=== PATIENT | female | born 1955 | race Caucasian/White ===

== ENCOUNTER 2020-01-08 12:44 | Outpatient (CLI) | payer OTHER, SELFPAY ==
--- NOTE | ~2020-01-08 | XR_ITS ---
EXAMINATION: XR knee LT 3V DATE: 01/08/2020 13:28 INDICATION: Left knee pain post fall TECHNIQUE: Anteroposterior, sunrise and crosstable lateral views of the left knee were obtained COMPARISON: None. FINDINGS: Alignment is normal. No fracture. No joint effusion/layering lipohemarthrosis. At least mild joint s pace narrowing in the medial compartment which could be underestimated on nonweightbearing imaging. T iny marginal osteophytes in the patellofemoral compartment. Soft tissues are unremarkable. IMPRESSION: 1. At least mild osteoarthritis in the medial and patellofemoral compartments. No left knee joint eff usion or acute osseous abnormality. Reviewed, dictated and finalized at location A. IMPRESSION: 1. At least mild osteoarthritis in the medial and patellofemoral compartments. No left knee joint effusion or acute osseous abnormality.
--- NOTE | ~2020-01-08 | XR_ITS ---
EXAMINATION: XR wrist RT min 3V DATE: 01/08/2020 13:28 INDICATION: Right wrist pain TECHNIQUE: Posteroanterior, ulnar deviation, oblique, and lateral views of the right wrist were obtai meghan. COMPARISON: none FINDINGS: Alignment is normal. No fracture. Couple sclerotic bone islands in the scaphoid. Mild osteoarthritis at the first interphalangeal joint. Remaining joint spaces are relatively preserved. IMPRESSION: 1. Mild osteoarthritis at the right first interphalangeal joint. Otherwise unremarkable right wrist r adiographs. Reviewed, dictated and finalized at location A. IMPRESSION: 1. Mild osteoarthritis at the right first interphalangeal joint. Otherwise unre markable right wrist radiographs.
--- NOTE | ~2020-01-08 | XR_ITS ---
EXAMINATION: XR foot LT min 3V DATE: 01/08/2020 13:28 INDICATION: Cellulitis of the left toe TECHNIQUE: Dorsoplantar, two oblique and lateral views of the left foot were obtained. COMPARISON: None. FINDINGS: Some periosteal reaction at the margins of an increased sclerosis along nondisplaced fracture at the base of the left fifth proximal phalanx. On one of the oblique views there is suggestion of possible extension to the proximal articular surface. Alignment remains essentially anatomic. No other fractur es identified. Subarticular sclerosis and slight flattening of the contour of the head of the second metatarsal consistent with osteonecrosis (Freiberg's infraction). Minimal to mild polyarticular osteo arthritis throughout the left foot. IMPRESSION: 1. Healing nondisplaced potentially intra-articular fracture at the base of the left fifth proximal p halanx. 2. 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 Reviewed, dictated and finalized at location A. IMPRESSION: 1. Healing nondisplaced potentially intra-articular fracture at the base of the left fifth proximal phalanx. 2. Osteonecrosis/Freiberg's infraction at the head of the left second metatarsa l.
== END 2020-01-08 12:45 | disposition home or self-care (01) ==
PROVIDERS: PCP Family Medicine; Visit Provider Family Medicine
DX: L03.032 Cellulitis of left toe (principal); M19.031 Primary osteoarthritis, right wrist; M17.12 Unilateral primary osteoarthritis, left knee; S92.515A Nondisplaced fracture of proximal phalanx of left lesser toe(s), initial encounter for closed fracture; X58.XXXA Exposure to other specified factors, initial encounter
CPT/HCPCS: 73110; 73562; 73630

== ENCOUNTER 2020-05-28 08:36 | Outpatient (NON) | payer OTHER, SELFPAY ==
[2020-05-28 18:17] LABS: SARS-CoV-2 RNA PCR Negative
== END 2020-05-28 08:37 ==
PROVIDERS: PCP Family Medicine; Visit Provider Family Medicine
DX: Z20.822 Contact with and (suspected) exposure to COVID-19 (principal); R51.9 Headache, unspecified
CPT/HCPCS: C9803; U0003; U0005

== ENCOUNTER 2020-07-06 10:44 | Emergency (ER) | payer OTHER, SELFPAY ==
[2020-07-06] VITALS (18 sets, daily range): BP systolic 104–147; BP diastolic 69–102; PULSE 64–80; RESP 14–21; TEMP 36.3; O2SAT 94–99
--- NOTE | ~2020-07-06 | XR_ITS ---
EXAMINATION: XR chest 2V DATE: 07/06/2020 11:29 INDICATION: Chest pain and shortness of breath TECHNIQUE: PA and lateral views of the chest are obtained. COMPARISON: 11/15/2017 FINDINGS: The lungs are free of acute opacities. There is no pleural effusion or pneumothorax. The ca rdiomediastinal silhouette is normal. There is moderate thoracic spondylosis. There are partially antwon ged changes of lumbar fusion. The gallbladder is surgically absent. Surgical clips in the right upper quadrant are likely from prior cholecystectomy. IMPRESSION: 1. No acute cardiopulmonary abnormality. Reviewed, dictated and finalized at location A. 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
--- NOTE | ~2020-07-06 | CT_ITS ---
EXAMINATION: CTA chest PE protocol DATE: 07/06/2020 12:53 INDICATION: Shortness of breath TECHNIQUE: Computed tomography angiography (CTA) of the chest was performed with 100 mL Omnipaque-350 intravenous contrast timed to evaluate the pulmonary arteries. Coronal maximum intensity projection 3D-reconstructions were created by the technologist. The dose-length product (DLP) was 696.99 mGy-cm. Automated exposure control and iterative reconstruction technique were employed. COMPARISON: 11/15/2017 FINDINGS: The pulmonary arteries are well-opacified. No pulmonary embolism is identified. There is mi ld dependent atelectasis. No pathologically enlarged thoracic lymph nodes are identified. The heart s ize is normal. The gallbladder is surgically absent. A stable enhancing mass of the spleen is most co nsistent with a benign finding given the lack of interval change since the 2018 comparison. IMPRESSION: 1. No pulmonary embolism or acute cardiopulmonary abnormality. Reviewed, dictated and finalized at location A. PROFESSOR
--- NOTE | 2020-07-06 11:08 | ECG_ITS ---
Measurements Intervals [place] Rate: 81 P: 40 FL: 160 QRS: 23 QRSD: 92 T: 66 QT: 362 QTc: 422 Interpretive Statements SINUS RHYTHM BORDERLINE ST-T WAVE ABNORMALITY- HIGH LATERAL LEADS BORDERLINE ECG Electronically Signed On 07-06-2020 15:22:40 ENGINEER/CONDUCTOR by Baldo Mcdowell D.O.
--- NOTE | 2020-07-06 11:21 | ED.GENADULT ---
HPI - General Adult General Chief complaint: Unspecified Stated complaint: chest pain with sob Time Seen by Provider: 07/06/20 11:08 Source: patient Mode of arrival: ambulatory Limitations: no limitations History of Present Illness HPI narrative: This is a 65-year-old female that presents the emergency department for intermittent chest pain over the last week. Reports the pain is substernal and is sharp in nature. It lasts only briefly. No known alleviating or exacerbating factors. She also reports some shortness of breath. She has history of PE and was concerned she had another one. She does take rivaroxaban, and reports she has been taking this as prescribed. Reports over the last couple of days she also noted some shooting pains from the left side of her back going into her chest. She then noted yesterday that she was starting to get a painful rash in the area. Denies fever cough. Related Data Allergies Allergy/AdvReac Type Severity Reaction Status Date / Time apixaban Allergy Mild Itching Verified 07/06/20 11:04 WITH RASH amoxicillin Allergy Unknown Difficulty Verified 07/06/20 11:04 Breathing codeine Allergy Unknown Difficulty Verified 07/06/20 11:04 Breathing clavulanic acid Allergy Difficulty Verified 07/06/20 11:04 [From Augmentin] Breathing AMOXICILLIN TRIHYDRATE Allergy Unknown Other Uncoded 07/06/20 11:04 Review of Systems Review of Systems: Narrative: CONSTITUTIONAL: Denies fever CARDIOVASCULAR: Reports chest pain RESPIRATORY: Reports dyspnea. Denies cough SKIN: Reports rash MUSCULOSKELETAL: Reports back pain All systems reviewed & are unremarkable except as noted in HPI and below PMFSH Past Medical History Medical History (Updated 07/06/20 @ 16:10 by Tiffanie Talbot PA-C) Acute non-recurrent maxillary sinusitis Acute pain of left knee Acute pain of right wrist Cataract Cellulitis of great toe, left Encounter for blood typing Fibromyalgia Headache Restless legs syndrome UTI (urinary tract infection) Family History Family History (Updated 08/17/18 @ 08:58 by DOCTOR UNKNOWN) Mother Acute myocardial infarction Cerebrovascular accident Carcinoma of colon Family history of lung cancer Family history of malignant neoplasm of breast in first degree relative Grandparent Acute myocardial infarction Family history of malignant neoplasm of breast in first degree relative Sibling Cerebrovascular accident Father Family history of chronic obstructive pulmonary disease Social History Social History Smoking status: Never smoker Alcohol intake: never Gender identity (if verbalized by the patient): Female Exam Narrative: Exam Narrative: GENERAL: Well-appearing, well-nourished, and in no acute distress. HEAD: Normocephalic, atraumatic. EYES: EOMI. ENT: Mucous membranes moist. Oropharynx without tonsillar hypertrophy exudate or other lesions. NECK: Supple. No adenopathy or masses. No carotid bruits or JVD CHEST: Clear to auscultation. No respiratory distress. No wheezes rales or rhonchi HEART: Regular rate and rhythm. No murmur heard. Normal peripheral pulses. EXTREMITIES: Normal range of motion. No edema. SKIN: Warm, dry. Red, papular rash present in groups over the left lateral chest NEURO: No focal deficits. Alert and oriented x3. PSYCH: Normal mood and affect Course Vital Signs Vital signs: Vital Signs Temperature 97.4 F L 07/06/20 10:51 Pulse Rate 80 07/06/20 10:51 Respiratory Rate 20 07/06/20 10:51 Blood Pressure 118/91 H 07/06/20 10:51 Pulse Oximetry 95 07/06/20 10:51 Temperature 97.4 F L 07/06/20 10:51 Pulse Rate 69 07/06/20 15:09 Respiratory Rate 19 07/06/20 15:09 Blood Pressure 144/102 H 07/06/20 15:09 Pulse Oximetry 99 07/06/20 15:09 Medical Decision Making MDM Narrative Medical decision making narrative: Patient presents the emergency department for ches
[2020-07-06] MEDS: ASPIRIN 81 MG CHEWABLE TABLET 324 MG PO (11:25)
[2020-07-06 11:38] LABS: Basophils Percent Auto 0.7 % (0.2-1.2); Eosinophils Absolute Auto 0.2 K/mm3 (0-0.3); Eosinophils Percent Auto 3.6 % (0-4.4); Hematocrit 41.5 % (37.0-47.0); Hemoglobin 13.7 g/dL (12.0-15.0); Immature Granulocyte Absolute 0.02 K/mm3 (0.00-0.031); Immature Granulocyte Percent A 0.3 % (0-0.5); Lymphocytes Absolute Auto 2.49 K/mm3 (0.9-3.2); Lymphocytes Percent Auto 42.1 % (18.3-44.2); Mean Corpuscular Hemoglobin 28.8 pg (26-34); Mean Corpuscular Volume 87.4 fl (80-100); Mean Platelet Volume 10.6 fl (7.4-10.4); Monocytes Absolute Auto 0.4 K/mm3 (0.1-0.6); Monocytes Percent Auto 6.8 % (2.6-8.5); Neutrophils Absolute Auto 2.8 K/mm3 (1.3-6.7); Neutrophils Percent Auto 46.5 % (45.5-73.1); Platelet Count Result 212 k/mm3 (150-375); Red Blood Count 4.75 M/mm3 (4.2-5.4); Red Cell Distribution Width 13.2 % (11.5-14.5); White Blood Count 5.9 K/mm3 (4.5-10.0)
[2020-07-06 11:52] LABS: INR 1.5; Prothrombin Time 18.3 Seconds (11.1-14.7)
[2020-07-06 11:53] LABS: Partial Thromboplastin Time 37.1 SECONDS (22.3-36.8)
[2020-07-06 11:56] LABS: Anion Gap 7 mmol/L (8-16); Blood Urea Nitrogen 16 mg/dL (7-17); Calcium 9.1 mg/dL (8.4-10.2); Carbon Dioxide 30 mmol/L (22-30); Chloride 99 mmol/L (98-107); Estimated CRCL calculation 120 ml/min; Estimated Glomerular Filt Rate > 60; Glucose 347 mg/dL (65-105); Potassium 3.8 mmol/L (3.4-5.0); Sodium 136 mmol/L (137-145)
[2020-07-06 12:08] LABS: NT Pro B Type Natriuretic Pept 39 PG/ML (5-100); Troponin I < 0.012 ng/mL (0.000-0.034)
[2020-07-06 15:37] LABS: Troponin I < 0.012 ng/mL (0.000-0.034)
== END 2020-07-06 16:42 | disposition home or self-care (01) ==
PROVIDERS: Physician Assistant; Emergency Provider Emergency Medicine; PCP Family Medicine
DX: R07.89 Other chest pain (principal); B02.9 Zoster without complications; M79.7 Fibromyalgia; Z87.440 Personal history of urinary (tract) infections; G25.81 Restless legs syndrome; R94.31 Abnormal electrocardiogram [ECG] [EKG]
CPT/HCPCS: 36415; 71046; 71275; 80048; 83880; 84484; 85025; 85610; 85730; 93005; 99284; A9270; Q9967

== ENCOUNTER 2020-07-25 15:14 | Outpatient (CLI) | payer OTHER, SELFPAY | END 2020-07-25 15:15 | disposition home or self-care (01) | LOC: ANHCOVIDVC 15:14 | PROVIDERS: PCP Family Medicine | DX: Z23 Encounter for immunization (principal) | CPT/HCPCS: 0001A; 91300 ==

== ENCOUNTER 2020-08-15 15:13 | Outpatient (CLI) | payer OTHER, SELFPAY | END 2020-08-15 15:14 | disposition home or self-care (01) | LOC: ANHCOVIDVC 15:13 | PROVIDERS: PCP Family Medicine | DX: Z23 Encounter for immunization (principal) | CPT/HCPCS: 0002A; 91300 ==

== ENCOUNTER 2020-08-30 13:31 | Emergency (ER) | payer OTHER, SELFPAY ==
--- NOTE | ~2020-08-30 | CT_ITS ---
EXAMINATION: CT abdomen pelvis w con DATE: 08/30/2020 15:32 INDICATION: Left upper quadrant abdominal pain, nausea. History of colon cancer. TECHNIQUE: Computed tomography (CT) of the abdomen and pelvis was performed with 100 cc Omnipaque 350 intravenous contrast. Automated exposure control and iterative reconstruction technique were employe d. Exam dose: 1088.30 mGy-cm total exam DLP. COMPARISON: 12/2018 right upper quadrant abdominal ultrasound 06/21/2018 CT abdomen pelvis FINDINGS: Stable peripherally enhancing 2.6 cm splenic mass with central hypodensity, unchanged since . Diffuse hepatic steatosis. No hepatic space-occupying mass lesion. Status post cholecystectomy. No bile duct or pancreatic duct dilatation. No pancreatic mass lesion or calcification. Normal morphology of the adrenal glands. Scattered bilateral renal cysts measuring up to 11.5 mm. Nonobstructing 4 mm right renal calculus. No ureteral calculus or hydroureteronephrosis. Normal caliber of the abdominal aorta. No intraperitoneal or retroperitoneal or pelvic mass lesion or adenopathy or ascites. Status post hysterectomy. The urinary bladder is unremarkable. Mild colonic diverticulosis. No CT evidence of diverticulitis. Status post right colectomy. Right wide fat-containing ventral abdominal wall hernia. Small left ventral supraumbilical fat-contai julian abdominal wall hernia. Posterior and interbody L3-5 and anterior L4-5 surgical spinal fusion. Moderately severe degenerative disc disease at L2-3 and L5-S1. IMPRESSION: Stable 2.6 cm splenic mass Diffuse hepatic steatosis Status post cholecystectomy Bilateral renal cysts Nonobstructive 4 mm right renal calculus Status post hysterectomy Mild colonic diverticulosis Status post right colectomy Surgical fusion of the lumbar spine at L3-5 Reviewed, dictated and finalized at Location A. Reviewed, dictated and finalized at location A.
--- NOTE | ~2020-08-30 | XR_ITS ---
XR chest 2V DATE: 08/30/2020 14:12 INDICATION: Left chest pain radiating under left breast and to the back TECHNIQUE: PA and lateral views COMPARISON: 07/06/2020 CT pulmonary scan 07/06/2020 2 view chest FINDINGS: Normal heart size. No hilar or mediastinal enlargement. No pulmonary infiltrate or consolid ation, pleural effusion or pulmonary vascular congestion or pneumothorax. Physical screws and rods are noted in the lumbar area. Status post cholecystectomy. Osteopenia. Mild thoracic and lumbar scoliosis. IMPRESSION: No active cardiopulmonary disease or significant change since 07/06/2020 Reviewed, dictated and finalized at location A. IMPRESSION: No active cardiopulmonary disease or significant change since 2020
[2020-08-30 13:33] VITALS: BP 143/64; PULSE 70; RESP 18; TEMP 36.2; O2SAT 100
--- NOTE | 2020-08-30 13:37 | ECG_ITS ---
Measurements Intervals [place] Rate: 66 P: 37 MD: 141 QRS: 13 QRSD: 82 T: 53 QT: 354 QTc: 373 Interpretive Statements SINUS RHYTHM BASELINE ARTIFACT- I, II NORMAL ECG Electronically Signed On 08-30-2020 17:45:57 CDT by Balod Mcdowell D.O.
[2020-08-30 13:56] LABS: Basophils Percent Auto 0.6 % (0.2-1.2); Eosinophils Absolute Auto 0.1 K/mm3 (0-0.3); Eosinophils Percent Auto 2.1 % (0-4.4); Hematocrit 42.9 % (37.0-47.0); Hemoglobin 14.2 g/dL (12.0-15.0); Immature Granulocyte Absolute 0.02 K/mm3 (0.00-0.031); Immature Granulocyte Percent A 0.3 % (0-0.5); Lymphocytes Absolute Auto 2.48 K/mm3 (0.9-3.2); Lymphocytes Percent Auto 37.2 % (18.3-44.2); Mean Corpuscular HGB Conc 33.1 g/dl (32-36); Mean Corpuscular Hemoglobin 29.3 pg (26-34); Mean Corpuscular Volume 88.5 fl (80-100); Mean Platelet Volume 10.1 fl (7.4-10.4); Monocytes Absolute Auto 0.5 K/mm3 (0.1-0.6); Monocytes Percent Auto 6.9 % (2.6-8.5); Neutrophils Absolute Auto 3.5 K/mm3 (1.3-6.7); Neutrophils Percent Auto 52.9 % (45.5-73.1); Platelet Count Result 237 k/mm3 (150-375); Red Blood Count 4.85 M/mm3 (4.2-5.4); Red Cell Distribution Width 13.2 % (11.5-14.5); White Blood Count 6.7 K/mm3 (4.5-10.0)
[2020-08-30 14:04] LABS: Anion Gap 4 mmol/L (8-16); Blood Urea Nitrogen 17 mg/dL (7-17); Calcium 9.3 mg/dL (8.4-10.2); Carbon Dioxide 34 mmol/L (22-30); Chloride 100 mmol/L (98-107); Estimated CRCL calculation 99 ml/min; Estimated Glomerular Filt Rate > 60; Glucose 187 mg/dL (65-105); Potassium 4.4 mmol/L (3.4-5.0); Sodium 138 mmol/L (137-145)
[2020-08-30 14:09] LABS: INR 1.7; Partial Thromboplastin Time 36.8 SECONDS (22.3-36.8); Prothrombin Time 20.3 Seconds (11.1-14.7)
--- NOTE | 2020-08-30 14:15 | ED.CHESTPAIN ---
HPI - Chest Pain General Chief Complaint: Chest Pain Stated Complaint: pain under left breast radiate to back x 8 days/na Time Seen by Provider: 08/30/20 14:14 History of Present Illness HPI narrative: Patient Related Data Allergies Allergy/AdvReac Type Severity Reaction Status Date / Time apixaban Allergy Mild Itching Verified 07/06/20 11:04 WITH RASH amoxicillin Allergy Unknown Difficulty Verified 07/06/20 11:04 Breathing codeine Allergy Unknown Difficulty Verified 07/06/20 11:04 Breathing clavulanic acid Allergy Difficulty Verified 07/06/20 11:04 [From Augmentin] Breathing AMOXICILLIN TRIHYDRATE Allergy Unknown Other Uncoded 07/06/20 11:04 PMFSH Past Medical History Medical History (Updated 07/07/20 @ 09:49 by Karlo Stanley MD) Acute non-recurrent maxillary sinusitis Acute pain of left knee Acute pain of right wrist Cataract Cellulitis of great toe, left Encounter for blood typing Fibromyalgia Headache HZV (herpes zoster virus) post herpetic neuralgia (07/06/20) Left lateral chest Restless legs syndrome UTI (urinary tract infection) Family History Family History (Updated 08/17/18 @ 08:58 by DOCTOR UNKNOWN) Mother Acute myocardial infarction Cerebrovascular accident Carcinoma of colon Family history of lung cancer Family history of malignant neoplasm of breast in first degree relative Grandparent Acute myocardial infarction Family history of malignant neoplasm of breast in first degree relative Sibling Cerebrovascular accident Father Family history of chronic obstructive pulmonary disease Social History Social History Smoking status: Never smoker Alcohol intake: never Gender identity (if verbalized by the patient): Female Course Vital Signs Vital signs: Vital Signs Temperature 36.2 C L 08/30/20 13:33 Pulse Rate 70 08/30/20 13:33 Respiratory Rate 18 08/30/20 13:33 Blood Pressure 143/64 H 08/30/20 13:33 Pulse Oximetry 100 08/30/20 13:33 Temperature 36.2 C L 08/30/20 13:33 Pulse Rate 70 08/30/20 13:33 Respiratory Rate 18 08/30/20 13:33 Blood Pressure 143/64 H 08/30/20 13:33 Pulse Oximetry 100 08/30/20 13:33 MDM - Chest Pain Lab Data Result diagrams: 08/30/20 13:44 08/30/20 13:44 Labs: Lab Results 08/30/20 08/30/20 08/30/20 Range/Units 13:44 13:44 13:44 WBC 6.7 (4.5-10.0) K/mm3 RBC 4.85 (4.2-5.4) M/mm3 Hgb 14.2 (12.0-15.0) g/dL Hct 42.9 (37.0-47.0) % MCV 88.5 (80-100) fl MCH 29.3 (26-34) pg MCHC 33.1 (32-36) g/dl RDW 13.2 (11.5-14.5) % Plt Count 237 (150-375) k/mm3 MPV 10.1 (7.4-10.4) fl Immature Gran % (Auto) 0.3 (0-0.5) % Neut % (Auto) 52.9 (45.5-73.1) % Lymph % (Auto) 37.2 (18.3-44.2) % [place] % (Auto) 6.9 (2.6-8.5) % Eos % (Auto) 2.1 (0-4.4) % Baso % (Auto) 0.6 (0.2-1.2) % Lymph # (Auto) 2.48 (0.9-3.2) K/mm3 [place] # (Auto) 0.5 (0.1-0.6) K/mm3 Eos # (Auto) 0.1 (0-0.3) K/mm3 Baso # (Auto) 0.0 (0.0-0.1) K/mm3 Abs Immat Gran (auto) 0.02 (0.00-0.031) K/mm3 Absolute Neuts (auto) 3.5 (1.3-6.7) K/mm3 Absolute Nucleated RBC 0.0 (0.0-0.012) K/mm3 Nucleated RBC % 0.0 (0.0-0.2) % PT 20.3 H (11.1-14.7) Seconds INR 1.7 APTT 36.8 (22.3-36.8) SECONDS Sodium 138 (137-145) mmol/L Potassium 4.4 (3.4-5.0) mmol/L Chloride 100 (98-107) mmol/L Carbon Dioxide 34 H (22-30) mmol/L Anion Gap 4 L (8-16) mmol/L BUN 17 (7-17) mg/dL Creatinine 0.50 L (0.7-1.0) mg/dL Estim Creat Clear Calc 99 ml/min Estimated GFR > 60 (59 - ) Glucose 187 H (65-105) mg/dL Calcium 9.3 (8.4-10.2) mg/dL Troponin I Pending Discharge Plan Discharge Prescriptions: No Action clindamycin HCl 300 mg capsule 300 mg PO Q8H Qty: 30 RF: 0 Hold Instructions: Patient no longe
[2020-08-30 14:16] LABS: Troponin I < 0.012 ng/mL (0.000-0.034)
[2020-08-30 14:30] VITALS: PULSE 73
[2020-08-30 14:31] VITALS: BP 163/84; PULSE 74; RESP 17; O2SAT 99
--- NOTE | 2020-08-30 14:33 | ED.CHESTPAIN ---
HPI - Chest Pain General Chief Complaint: Chest Pain Stated Complaint: pain under left breast radiate to back x 8 days/na Time Seen by Provider: 08/30/20 14:14 Source: patient Mode of arrival: ambulatory Limitations: no limitations History of Present Illness HPI narrative: Patient 65 years old white female presented to the ED with intermittent pain at the left lower ribs below left breast. Associated with intermittent nausea and diaphoresis. Patient denies any aggravating or relieving factors, patient reported eating sometimes can make it worse. History of shingles 2 months ago on the same side and site. Patient been complaining of discomfort and intermittent itching for the last 2 months at the same area. History of diabetes, hypertension, right pulmonary embolism 2 years ago, currently on Xarelto and aspirin. Patient does not smoke or drink, uses marijuana every night. Related Data Allergies Allergy/AdvReac Type Severity Reaction Status Date / Time apixaban Allergy Mild Itching Verified 08/30/20 14:35 WITH RASH amoxicillin Allergy Unknown Difficulty Verified 08/30/20 14:35 Breathing codeine Allergy Unknown Difficulty Verified 08/30/20 14:35 Breathing clavulanic acid Allergy Difficulty Verified 08/30/20 14:35 [From Augmentin] Breathing AMOXICILLIN TRIHYDRATE Allergy Unknown Other Uncoded 08/30/20 14:35 Review of Systems Review of Systems: Narrative: CONSTITUTIONAL: Denies fever, chills, or sweats. EYES: Denies visual changes, redness, or discharge. ENT: Denies rhinorrhea, congestion, sore throat, or otalgia. CARDIOVASCULAR: Denies chest pain, palpitations, or edema. RESPIRATORY: Denies cough or dyspnea. GASTROINTESTINAL: Denies abdominal pain, nausea, vomiting, or diarrhea. GENITOURINARY: Denies dysuria or hematuria. SKIN: Denies rash or itching. MUSCULOSKELETAL: Denies back pain, joint pain, or myalgia. NEUROLOGIC: Denies headache, numbness, or weakness. PSYCHIATRIC: Anxiety PMFSH Past Medical History Medical History Acute non-recurrent maxillary sinusitis Acute pain of left knee Acute pain of right wrist Cataract Cellulitis of great toe, left Encounter for blood typing Fibromyalgia Headache HZV (herpes zoster virus) post herpetic neuralgia (07/06/20) Left lateral chest Restless legs syndrome UTI (urinary tract infection) Family History Family History Mother Acute myocardial infarction Cerebrovascular accident Carcinoma of colon Family history of lung cancer Family history of malignant neoplasm of breast in first degree relative Grandparent Acute myocardial infarction Family history of malignant neoplasm of breast in first degree relative Sibling Cerebrovascular accident Father Family history of chronic obstructive pulmonary disease Social History Social History Smoking status: Never smoker Alcohol intake: never Gender identity (if verbalized by the patient): Female Exam Narrative: Exam Narrative: General appearance: Well-developed, well-nourished Skin: Normal color Head: Normocephalic, nontraumatic Eyes: Clear conjunctiva ENT: Oropharynx normal, ears normal, nose normal Neck: Supple, nontender Chest and respiratory: Airway patent, no respiratory distress, no accessory muscle use, moderate tenderness left lower ribs at the mid axillary line, no erythema, no bruises, no swelling.. Old healing rash at that area Heart: Regular rate/rhythm Abdomen: Soft, nontender, no organomegaly, quiet bowel sounds Vascular: Normal peripheral pulses, normal capillary refill. 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
[2020-08-30] MEDS: ASPIRIN 81 MG CHEWABLE TABLET 324 MG PO (14:34)
[2020-08-30 14:58] LABS: Alanine Aminotransferase 21 U/L (4-35); Albumin Level 4.4 g/dL (3.5-5.1); Alkaline Phosphatase 79 U/L (38-126); Aspartate Amino Transferase 27 U/L (14-36); Bilirubin,Total 0.5 mg/dL (0.2-1.3); Lipase 51 U/L (23-300)
[2020-08-30 15:16] VITALS: BP 135/65; PULSE 70; RESP 20; O2SAT 97
[2020-08-30 16:09] VITALS: BP 137/70; PULSE 73; RESP 18; O2SAT 96
[2020-08-30 17:43] VITALS: BP 110/79; PULSE 74; RESP 18; O2SAT 95
== END 2020-08-30 17:44 | disposition home or self-care (01) ==
PROVIDERS: Emergency Provider Emergency Medicine; PCP Family Medicine
DX: D73.9 Disease of spleen, unspecified (principal); R07.9 Chest pain, unspecified; E11.9 Type 2 diabetes mellitus without complications; I10 Essential (primary) hypertension; Z86.711 Personal history of pulmonary embolism; Z79.01 Long term (current) use of anticoagulants; Z79.82 Long term (current) use of aspirin; M79.7 Fibromyalgia; G25.81 Restless legs syndrome; Z87.440 Personal history of urinary (tract) infections; H26.9 Unspecified cataract; Z79.4 Long term (current) use of insulin
CPT/HCPCS: 36415; 71046; 74177; 80048; 80076; 83690; 84484; 85025; 85610; 85730; 93005; 99284; A9270; Q9967

== ENCOUNTER 2020-11-05 13:14 | Outpatient (CLI) | payer OTHER, SELFPAY ==
--- NOTE | ~2020-11-05 | MM_ITS ---
EXAMINATION: MM diagnostic madhuri BI w keisha HISTORY: Diffuse cystic mastopathy TECHNIQUE: ML, MLO and craniocaudal bilateral full field and left spot 3-D tomosynthesis images were performed and synthetic 2-D images were generated. CAD analysis was submitted and interpreted. COMPARISON: None BREAST PARENCHYMAL COMPOSITION: There are scattered areas of fibroglandular density. FINDINGS: Occasional bilateral benign calcifications. No suspicious mass, architectural distortion, m alignant calcification, skin thickening or retraction of either breast is evident. IMPRESSION: 1. No mammographic evidence of malignancy 2. Routine mammographic screening is recommended BI-RADS Category 2: Benign finding(s). Reviewed, dictated and finalized at location A.
== END 2020-11-05 13:15 | disposition home or self-care (01) ==
LOC: ANHIMG 13:15
PROVIDERS: PCP Family Medicine; Visit Provider Family Medicine
DX: N60.19 Diffuse cystic mastopathy of unspecified breast (principal); R92.2 Inconclusive mammogram
CPT/HCPCS: 77062; 77066; G0279

== ENCOUNTER 2021-09-07 13:04 | Outpatient (CLI) | payer OTHER, SELFPAY ==
--- NOTE | ~2021-09-07 | XR_ITS ---
XR hip RT min 3V w AP pelvis DATE: 09/07/2021 13:31 INDICATION: Right hip pain TECHNIQUE: AP pelvis. AP, lateral and crosstable lateral views of right hip COMPARISON: 06/14/2014 MRI pelvis / CT abdomen pelvis FINDINGS: Osteopenia. Normal alignment at the pubic symphysis and sacroiliac joints. Mild osteoarthritic changes of the sac roiliac and hip joints. No pelvic fracture or bone destruction. Pedicle screws and rods and anterior plate and screws are noted in the lower lumbar spine. IMPRESSION: Mild bilateral sacroiliac and hip osteoarthritis Osteopenia Postoperative change of the lumbar spine Reviewed, dictated and finalized at location A.
--- NOTE | ~2021-09-07 | XR_ITS ---
XR lumbar spine min 4V DATE: 09/07/2021 13:32 INDICATION: Low back pain, left sciatica TECHNIQUE: AP, lateral, bilateral oblique views and coned lateral lumbosacral view COMPARISON: None FINDINGS: Posterior spinal fusion at L3-5 bilaterally with pedicle screws and rods. Interbody spinal fusion at L3-4 and L4-5. Anterior plate and screws at L4-5. There is diffuse osteopenia. There is severe degenerative disc disease and mild anterolisthesis at L2-3. Mild degenerative disc disease at L5-S1 The sacroiliac joints are intact. No fracture or bone destruction is evident. Status post cholecystectomy. IMPRESSION: Anterior, interbody and posterior lumbar surgical spinal fusion Mild anterolisthesis and severe degenerative disc disease at L2-3 Mild degenerative disc disease at L5-S1 Reviewed, dictated and finalized at location A.
== END 2021-09-07 13:05 | disposition home or self-care (01) ==
LOC: ANHIMG 13:08
PROVIDERS: PCP Family Medicine; Visit Provider Family Medicine
DX: M25.551 Pain in right hip (principal); G89.29 Other chronic pain; M54.41 Lumbago with sciatica, right side; M54.42 Lumbago with sciatica, left side; Z98.1 Arthrodesis status; M51.37 Other intervertebral disc degeneration, lumbosacral region; M51.36 Other intervertebral disc degeneration, lumbar region; M53.3 Sacrococcygeal disorders, not elsewhere classified; M16.0 Bilateral primary osteoarthritis of hip; M85.88 Other specified disorders of bone density and structure, other site
CPT/HCPCS: 72110; 73502

== ENCOUNTER 2022-01-10 19:06 | Emergency (ER) | payer OTHER, SELFPAY ==
[2022-01-10] VITALS (10 sets, daily range): BP systolic 130–158; BP diastolic 63–80; PULSE 81–92; RESP 13–19; TEMP 36.9; O2SAT 91–98
--- NOTE | ~2022-01-10 | XR_ITS ---
EXAMINATION: XR chest 1V portable Exam Date/Time: 01/10/2022 19:50 CDT HISTORY: SOB, COUGH, N/V, CHEST PAIN X TODAY. Comparison: 08/30/2020. RESULT: Lines, tubes, and devices: None. Lungs and pleura: Clear. Cardiomediastinal silhouette: Stable. Other: No acute osseous or upper abdominal finding. IMPRESSION: No acute cardiopulmonary process. Reviewed, dictated and finalized at location K.
--- NOTE | 2022-01-10 19:14 | ECG_ITS ---
Measurements Intervals [place] Rate: 91 P: 33 MN: 145 QRS: 4 QRSD: 97 T: 44 QT: 354 QTc: 437 Interpretive Statements SINUS RHYTHM NORMAL ELECTROCARDIOGRAM COMPARED TO ECG 08/30/2020 13:43:16 NO SIGNIFICANT CHANGES Electronically Signed On 01-11-2022 16:54:11 CDT by Ismael Ortega M.D.
--- NOTE | 2022-01-10 19:28 | ED.GENADULT ---
HPI - General Adult General Chief complaint: Upper Respiratory Infection Stated complaint: headache Time Seen by Provider: 01/10/22 19:16 History of Present Illness HPI narrative: Patient 66-year-old female who presents the emergency department with chief complaint of sore throat body aches cough pain with breathing and generalized malaise. Patient reports she has history of a pulmonary embolus and is currently on anticoagulants. Patient states this morning she woke up and started having a sore throat she stated was initially can of a tickle like feeling that has progressed to become pretty severe patient reports that she had COVID back in May and had symptoms for about 2 weeks. Patient states that she feels horrible reports that the symptoms or not improved by anything reports she feels extremely nauseated. The patient reports that she has discomfort in her chest that is a sharp type sensation and worse whenever she coughs Related Data Home Medications Medication Instructions Recorded Confirmed omeprazole 20 mg tablet,delayed 20 mg PO BID 07/30/21 01/06/22 release insulin glargine 100 unit/mL 60 unit subcut DAILY 01/06/22 01/06/22 subcutaneous solution (Lantus U-100 Insulin) Allergies Allergy/AdvReac Type Severity Reaction Status Date / Time apixaban Allergy Mild Itching Verified 08/30/20 14:35 WITH RASH amoxicillin Allergy Unknown Difficulty Verified 08/30/20 14:35 Breathing codeine Allergy Unknown Difficulty Verified 08/30/20 14:35 Breathing clavulanic acid Allergy Difficulty Verified 08/30/20 14:35 [From Augmentin] Breathing AMOXICILLIN TRIHYDRATE Allergy Unknown Other Uncoded 08/30/20 14:35 Review of Systems Review of Systems: A 10 system review of systems was completed on the patient and is negative except for what is stated in the HPI. Nursing and ancillary documentation was reviewed. [facility] Past Medical History Medical History Acute bronchitis Acute non-recurrent maxillary sinusitis Acute pain of left knee Acute pain of right wrist BMI 31.0-31.9,adult BMI 33.0-33.9,adult BMI 34.0-34.9,adult Cataract Cellulitis of great toe, left Chronic pain of right hip Mild osteoarthritis of both hips on x-ray of the hips and pelvis on 09/07/2021. COVID-19 (05/17/21) fully vaccinated and tested positive for COVID on 05/22/2021 Encounter for blood typing blood type A positive on 09/11/2020 Fibrocystic breast Fibromyalgia Fuchs' corneal dystrophy of both eyes Headache HZV (herpes zoster virus) post herpetic neuralgia (07/06/20) Left lateral chest Nausea Nonproliferative diabetic retinopathy with macular edema associated with type 2 diabetes mellitus (09/02/21) Obesity (BMI 30.0-34.9) Oral candidiasis Osteopenia determined by x-ray diffuse osteopenia of the lumbar spine on x-ray 09/07/2021. Restless legs syndrome UTI (urinary tract infection) Family History Family History Mother Acute myocardial infarction Cerebrovascular accident Carcinoma of colon Family history of lung cancer Family history of malignant neoplasm of breast in first degree relative Grandparent Acute myocardial infarction Family history of malignant neoplasm of breast in first degree relative Sibling Cerebrovascular accident Father Family history of chronic obstructive pulmonary disease Social History Social History Smoking status: Never smoker Alcohol intake: never Substance use: never Substance use type: does not use Gender identity (if verbalized by the patient): Female Exam Narrative: GENERAL: Well-appearing, well-nourished, and in no acute distress. HEAD: Normocephalic, atraumatic. EYES: PERRLA and EOMI. ENT: Nares clear, no rhinorrhea or epistaxis. Mucous membranes moist. NECK: Supple. KASHIF
[2022-01-10] MEDS: MORPHINE SULFATE (*CRX) 4 MG/ML INJ IV PUSH (20:13)
[2022-01-10 20:14] LABS: Basophils Percent Auto 0.6 % (0.2-1.2); Eosinophils Absolute Auto 0.1 K/mm3 (0-0.3); Eosinophils Percent Auto 1.2 % (0-4.4); Hematocrit 44.4 % (37.0-47.0); Hemoglobin 14.9 g/dL (12.0-15.0); Immature Granulocyte Absolute 0.03 K/mm3 (0.00-0.031); Immature Granulocyte Percent A 0.4 % (0-0.5); Lymphocytes Absolute Auto 1.42 K/mm3 (0.9-3.2); Lymphocytes Percent Auto 20.5 % (18.3-44.2); Mean Corpuscular HGB Conc 33.6 g/dl (32-36); Mean Corpuscular Volume 86.5 fl (80-100); Mean Platelet Volume 10.6 fl (7.4-10.4); Monocytes Absolute Auto 0.5 K/mm3 (0.1-0.6); Monocytes Percent Auto 7.7 % (2.6-8.5); Neutrophils Absolute Auto 4.8 K/mm3 (1.3-6.7); Neutrophils Percent Auto 69.6 % (45.5-73.1); Platelet Count Result 211 k/mm3 (150-375); Red Blood Count 5.13 M/mm3 (4.2-5.4); Red Cell Distribution Width 13.2 % (11.5-14.5); White Blood Count 6.9 K/mm3 (4.5-10.0)
[2022-01-10] MEDS: SODIUM CHLORIDE 0.9% IV 1,000 ML 999 ML IV CONT (20:15)
[2022-01-10] MEDS: PROCHLORPERAZINE EDISYLATE 10 MG/2 ML VIAL IV PUSH (20:20)
[2022-01-10] MEDS: BENZONATATE 100 MG CAPSULE 200 MG PO (20:20)
[2022-01-10 20:24] LABS: Appearance Urine Clear (Clear); Bilirubin Urine Negative (Negative); Blood Urine Negative (Negative); Color Urine Yellow (Yellow); Glucose Urine UA 3+ mg/dL (Negative); Ketones Urine 2+ mg/dL (Negative); Leukocyte Esterase Ur Negative LEU/UL (Negative); Nitrate Urine Negative (Negative); Protein Urine Trace mg/dL (Negative); Urobilinogen Urine 0.2 mg/dL (<2.0)
[2022-01-10 20:24] LABS: Alanine Aminotransferase 20 U/L (6-35); Albumin Level 4.6 g/dL (3.5-5.1); Alkaline Phosphatase 97 U/L (38-126); Anion Gap 11 mmol/L (8-16); Aspartate Amino Transferase 24 U/L (14-36); Bilirubin,Total 0.8 mg/dL (0.2-1.3); Blood Urea Nitrogen 10 mg/dL (7-17); Calcium 9.1 mg/dL (8.4-10.2); Carbon Dioxide 30 mmol/L (22-30); Chloride 94 mmol/L (98-107); Estimated CRCL calculation 117 ml/min; Estimated Glomerular Filt Rate > 60; Glucose 254 mg/dL (65-110); Lactic Acid Reflex 1.3 mmol/L (0.7-2.0); Lipase 320 U/L (23-300); Magnesium 1.8 mg/dL (1.6-2.3); Potassium 3.5 mmol/L (3.4-5.0); Sodium 135 mmol/L (137-145)
[2022-01-10 20:27] LABS: Prothrombin Time 12.9 Seconds (11.1-14.7)
[2022-01-10 20:28] LABS: Partial Thromboplastin Time 28.3 SECONDS (22.3-36.8)
--- NOTE | 2022-01-10 20:28 | PC.NURSE ---
Pulled a total of 3 tessalon pearls. 1st 2 were pulled and 1 was dropped on the ground, pulled a 3rd one and wasted 1 so pt would only be charged for 2.
[2022-01-10 20:35] LABS: Troponin I < 0.012 ng/mL (0.000-0.034)
[2022-01-10 20:36] LABS: Add Urine Microscopic? YES; Bacteria Urine Trace /hpf; Mucus Urine Rare /lpf; Squamous Epithelial Cell Urine Few /hpf (Few)
[2022-01-10 20:55] LABS: Influenza A QL RT-PCR Negative (Negative); Influenza B QL RT-PCR Negative (Negative); SARS-CoV-2 RNA PCR Negative
[2022-01-10 20:57] LABS: Procalcitonin 0.1 ng/mL
== END 2022-01-10 22:00 | disposition home or self-care (01) ==
PROVIDERS: Emergency Provider Emergency Medicine; PCP Family Medicine
DX: J06.9 Acute upper respiratory infection, unspecified (principal); N39.0 Urinary tract infection, site not specified; Z20.822 Contact with and (suspected) exposure to COVID-19; E11.9 Type 2 diabetes mellitus without complications; H18.513 Endothelial corneal dystrophy, bilateral; M79.7 Fibromyalgia; M85.80 Other specified disorders of bone density and structure, unspecified site; M16.0 Bilateral primary osteoarthritis of hip; E66.9 Obesity, unspecified; Z68.31 Body mass index [BMI] 31.0-31.9, adult; G25.81 Restless legs syndrome; Z86.711 Personal history of pulmonary embolism; Z86.16 Personal history of COVID-19; Z87.440 Personal history of urinary (tract) infections; Z79.4 Long term (current) use of insulin; Z79.84 Long term (current) use of oral hypoglycemic drugs; Z79.01 Long term (current) use of anticoagulants
CPT/HCPCS: 36415; 71045; 80053; 81001; 83605; 83690; 83735; 84145; 84484; 85025; 85610; 85730; 87040; 87081; 87086; 87088; 87502; 87880; 93005; 96361; 96374; 96375; 99284; A9270; C9803; J0780; J2270; J7030; U0003; U0005

== ENCOUNTER 2022-04-21 09:29 | Outpatient (CLI) | payer OTHER, SELFPAY ==
--- NOTE | ~2022-04-21 | DEXA_ITS ---
Bone Density Report Name: INA BRAN Age: 67 Sex: Female Ethnicity: White Date of : 1955 Indication: postmenopausal; screening for osteoporosis; height loss; prior fracture; cancer; hysterectomy; Referring Provider: ZURDO MELCHOR Study: Bone densitometry was performed. Exam Date: April 21, 2022 Accession number: [id number] Bone Density: Region BMD T-score Z-score Classification AP Spine(L1, L2) 1.009 0.3 1.9 Normal Femoral Neck (Left) 0.679 -1.5 0.0 Osteopenia Total Hip (Left) 0.896 -0.4 0.8 Normal Femoral Neck (Right) 0.692 -1.4 0.1 Osteopenia Total Hip (Right) 0.919 -0.2 1.0 Normal Total Hip Mean 0.908 -0.3 0.9 Normal World Health Organization criteria for BMD impression classify patients as: Normal (T-score at or above -1.0), Osteopenia (T-score between -1.0 and -2.5), or Osteoporosis (T-score at or below -2.5). 10-year Fracture Risk: FRAX not reported because: Prior hip or vertebral fracture Clinical Information Provided by Patient: Have had a previous hip or vertebral fracture Has had a low trauma fracture Has used the following medications: Vitamin D Has the following medical conditions: Cancer, Hysterectomy Patient maximum height was 63 Menopause Age: 39 Drinks caffeinated beverages Onset of menses at age 14 Number of children 3 Impression: The patient has low bone mass, based on the Left Femoral Neck T-score. The patient has risk factors, including: previous fracture. Discussion: INCREASED RISK OF FRACTURE DUE TO HISTORY OF FRACTURE. The patient's previous fracture puts the patient at high risk of a future fracture. In untreated patients, the risk of osteoporotic fracture increases approximately two-fold for each 1.0 SD decrease in T-score. Low bone density is not the only risk factor for fracture; also consider factors such as patient's age, frailty or poor health, risk of falling, risk of injury, previous osteoporotic fracture, family history of osteoporosis, cigarette smoking, low body weight, etc. Not everyone with a low trauma fracture has osteoporosis; osteomalacia and other metabolic bone disorders should also be considered. Patients who have osteoporosis should be evaluated for specific diseases and conditions (secondary causes) that may cause or contribute to bone loss and fracture risk. National Osteoporosis Foundation (NOF) recommends pharmacologic intervention for patients with a prior hip or vertebral fracture regardless of BMD T-score. The patient should follow a healthful lifestyle (good nutrition with adequate calcium and vitamin D, and appropriate weight-bearing exercise). Follow-Up: Consider a repeat BMD and Vertebral Fracture Assessment (VFA) exam in 2 years or sooner if medically necessary, to reassess this patient's status. Reported by: Carl
== END 2022-04-21 09:30 | disposition home or self-care (01) ==
LOC: ANHIMG 09:31
PROVIDERS: PCP Family Medicine; Visit Provider Family Medicine
DX: M85.80 Other specified disorders of bone density and structure, unspecified site (principal); M85.852 Other specified disorders of bone density and structure, left thigh; M85.851 Other specified disorders of bone density and structure, right thigh
CPT/HCPCS: 77080

== ENCOUNTER 2022-06-15 00:37 | Day surgery (SDC) | payer MEDICARE, SELFPAY ==
[2022-06-15 08:01] VITALS: BP 131/81; PULSE 78; RESP 18; TEMP 36.3; O2SAT 96; BMI 31.4
[2022-06-15] MEDS: LACTATED RINGERS 1,000 ML 150 ML IV CONT (08:04)
[2022-06-15 08:17] LABS: Glucose Point of Care 123 mg/dl (65-105)
--- NOTE | 2022-06-15 08:26 | PM.HPGS ---
History of Present Illness History of Present Illness Consent: Risks, benefits, and alternatives have been discussed and questions answered. Patient agrees to proceed with procedure. Chief complaint: GERD Narrative: Jody Rodriguez is a 67 year old female Complains of ongoing regurgitation and upper abdominal pain. She is known to have acid reflux. Currently poorly responsive to lansoprazole 30mg p.o. b.i.d.. Patient notes occasional difficulty swallowing with food catching in the chest. Her family history is noncontributory. Patient presents today for EGD to assess symptoms thoroughly. Review of Systems Review of Systems: Review of systems noncontributory. [facility] Past Medical History Medical History (Updated 06/15/22 @ 08:27 by Abhilash Torrez MD) Acute bronchitis Acute non-recurrent maxillary sinusitis Acute pain of left knee Acute pain of right wrist BMI 31.0-31.9,adult BMI 33.0-33.9,adult BMI 34.0-34.9,adult Cataract Cellulitis of great toe, left Chronic pain of right hip Mild osteoarthritis of both hips on x-ray of the hips and pelvis on 09/07/2021. COVID-19 (05/17/21) fully vaccinated and tested positive for COVID on 05/22/2021 Diarrhea (~04/18/22) Encounter for blood typing blood type A positive on 09/11/2020 Fibrocystic breast Fibromyalgia Fuchs' corneal dystrophy of both eyes Headache HZV (herpes zoster virus) post herpetic neuralgia (07/06/20) Left lateral chest Nausea Nonproliferative diabetic retinopathy with macular edema associated with type 2 diabetes mellitus (09/02/21) Dilated eye exam 05/14/2022 with non blurred refer to diabetic retinopathy with macular edema on the left with need for injection. Obesity (BMI 30.0-34.9) Oral candidiasis Osteopenia determined by x-ray diffuse osteopenia of the lumbar spine on x-ray 09/07/2021. DEXA scan on 04/21/2022 reveals mild osteopenia with T-score 0.3 at the spine, -1.5 left hip, -1.4 right hip. Restless legs syndrome UTI (urinary tract infection) Family History Family History Mother Acute myocardial infarction Cerebrovascular accident Carcinoma of colon Family history of lung cancer Family history of malignant neoplasm of breast in first degree relative Grandparent Acute myocardial infarction Family history of malignant neoplasm of breast in first degree relative Sibling Cerebrovascular accident Father Family history of chronic obstructive pulmonary disease Social History Social History Smoking status: Never smoker Alcohol intake: never Substance use: never Substance use type: marijuana Other substance usage details: GUMMIES OCC. AT EVENING Living arrangements: with family Gender identity (if verbalized by the patient): Female Spiritual care concerns: No Meds Home Medications and Allergies Home Medications Medication Instructions Recorded Confirmed Type insulin syringe-needle U-100 1 mL #100 ea 04/18/19 01/06/22 Rx 30 gauge x 5/16 (CareTouch Insulin Syringe) blood sugar diagnostic #100 ea 09/15/20 01/06/22 Rx pen needle, diabetic 32 gauge x #100 ea 10/17/20 01/06/22 Rx 5/16 (Comfort EZ Pen Baker) pen needle, diabetic 29 gauge x #100 ea 01/30/21 01/06/22 Rx 1/2 (Comfort EZ Pen Baker) insulin syringe-needle U-100 1 mL #100 ea 02/02/21 01/06/22 Rx 29 gauge x 1/2 (Advocate Syringes) insulin syringe-needle U-100 1 mL #100 ea 02/04/21 01/06/22 Rx 30 gauge x 1/2 (BD Eclipse Luer-Bernie) blood sugar diagnostic (OneTouch #100 ea 06/08/21 01/06/22 Rx Ultra Test strips) ergocalciferol (vitamin D2) 1,250 50,000 unit PO WEEKLY #12 caps 07/06/21 06/15/22 Rx mcg (50,000 unit) capsule metformin 500 mg tablet,extended 1,000 mg PO BID #360 tabs 07/06/21 06/15/22 Rx release 24 hr rivaroxaban 20 mg tablet (Xarelto) 20 mg PO DAILY #90 tabs 07/06/21 06/15/22 Rx ti
--- NOTE | 2022-06-15 08:29 | WPDANESEPPF ---
Anes - Initial Pre Proc Eval Procedure: Operation Date: 06/15/22 09:15 Proposed Procedures p Esophagogastroduodenoscopy - Abhilash Torrez MD Date/Time: 06/15/22 08:29 Surgeon: Abhilash Torrez MD Pre Op Diagnosis: GERD Patient Data Age: 67 Gender: F Height: 1.6 m Weight: 80.4 kg Last Vital Signs Temp 97.4 F L 06/15/22 08:01 Pulse 78 06/15/22 08:01 Resp 18 06/15/22 08:01 BP 131/81 06/15/22 08:01 Pulse Ox 96 06/15/22 08:01 O2 Del Method Room Air 06/15/22 08:01 Allergies Allergy/AdvReac Type Severity Reaction Status Date / Time apixaban Allergy Severe Hives Verified 06/15/22 07:57 clavulanic acid Allergy Severe Difficulty Verified 06/15/22 07:57 [From Augmentin] Breathing codeine Allergy Intermediate Rash Verified 06/15/22 07:57 Home Medications Medication Instructions Recorded Confirmed Type insulin syringe-needle U-100 1 mL #100 ea 04/18/19 01/06/22 Rx 30 gauge x 5/16 (CareTouch Insulin Syringe) blood sugar diagnostic #100 ea 09/15/20 01/06/22 Rx pen needle, diabetic 32 gauge x #100 ea 10/17/20 01/06/22 Rx 5/16 (Comfort EZ Pen Monroe) pen needle, diabetic 29 gauge x #100 ea 01/30/21 01/06/22 Rx 1/2 (Comfort EZ Pen Monroe) insulin syringe-needle U-100 1 mL #100 ea 02/02/21 01/06/22 Rx 29 gauge x 1/2 (Advocate Syringes) insulin syringe-needle U-100 1 mL #100 ea 02/04/21 01/06/22 Rx 30 gauge x 1/2 (BD Eclipse Luer-Bernie) blood sugar diagnostic (OneTouch #100 ea 06/08/21 01/06/22 Rx Ultra Test strips) ergocalciferol (vitamin D2) 1,250 50,000 unit PO WEEKLY #12 caps 07/06/21 06/15/22 Rx mcg (50,000 unit) capsule metformin 500 mg tablet,extended 1,000 mg PO BID #360 tabs 07/06/21 06/15/22 Rx release 24 hr rivaroxaban 20 mg tablet (Xarelto) 20 mg PO DAILY #90 tabs 07/06/21 06/15/22 Rx tizanidine 4 mg tablet 4 mg PO TID PRN muscle spasticity 10/15/21 06/15/22 Rx #120 tabs cyanocobalamin (vitamin B-12) 1,000 mcg IM WEEKLY #25 mL 11/13/21 06/15/22 Rx 1,000 mcg/mL injection solution insulin glargine 100 unit/mL 60 unit subcut DAILY 01/06/22 06/15/22 History subcutaneous solution (Lantus U-100 Insulin) cholestyramine-aspartame 4 gram 4 g PO BID PRN diarrhea #210 grams 04/20/22 06/15/22 Rx oral powder (Questran Light) ondansetron HCl 4 mg tablet 4 mg PO Q6H PRN nausea and 04/20/22 06/15/22 Rx vomiting #14 tabs irbesartan 300 1 tablet PO DAILY #90 tabs 04/23/22 06/15/22 Rx mg-hydrochlorothiazide 12.5 mg tablet folic acid 1 mg tablet 1 mg PO DAILY #90 tabs 05/13/22 06/15/22 Rx hydrocodone 10 mg-acetaminophen 1 tablet PO Q4H PRN pain #120 tabs 05/13/22 06/15/22 Rx 325 mg tablet potassium chloride 10 mEq 10 meq PO DAILY #90 caps 05/13/22 06/15/22 Rx capsule,extended release pregabalin 150 mg capsule (Lyrica) 150 mg PO .COMPLEX #360 caps 06/02/22 06/15/22 Rx Adults Multivitamin 1 tab-cap PO DAILY 06/09/22 06/15/22 History insulin aspart prot-aspart 100 1 sliding scale dose subcut 06/09/22 06/15/22 History unit/mL (70-30) subcutaneous USEASDIRECTD cartridge lansoprazole 30 mg capsule,delayed 30 mg PO DAILY 06/09/22 06/15/22 History release Laboratory Tests 06/15/22 08:13 POC Capillary Glucose 123 mg/dl H mg/dl (65-105) Patient hx anesthesia problems: none Family hx anesthesia problems: none Results Review: All pre-operative results and documents have been reviewed as part of the pre-operative evaluation. [facility] Past Medical History Medical History (Updated 06/15/22 @ 08:27 by Abhilash Torrez MD) Acute bronchitis Acute non-recurrent maxillary sinusitis Acute pain of left knee Acute pain of right wrist BMI 31.0-31.9,adult BMI 33.0-33.9,adult BMI 34.0-34.9,adult Cataract Cellulitis of great toe, left Chronic pain of right hip Mild osteoarthritis of both hips on x-ray of the hips and pelvis on 09/07/2021. COVID-19 (05/17/21) fully vaccinated and tested positive for COVID on
[2022-06-15 09:38] VITALS: BP 106/65; PULSE 63; RESP 16; O2SAT 95
[2022-06-15 09:48] VITALS: BP 100/56; PULSE 64; RESP 15; O2SAT 95
[2022-06-15 09:58] VITALS: BP 128/79; PULSE 63; RESP 13; O2SAT 96
== END 2022-06-15 10:10 | disposition home or self-care (01) ==
PROVIDERS: PCP Family Medicine; Visit Provider Internal Medicine Gastroenterology
PROC: 0DJ08ZZ Inspection of Upper Intestinal Tract, Via Natural or Artificial Opening Endoscopic (ICD-10-PCS; CPT 43235; principal; 2022-06-15 09:15)
DX: K21.9 Gastro-esophageal reflux disease without esophagitis (principal); R13.10 Dysphagia, unspecified; E11.3219 Type 2 diabetes mellitus with mild nonproliferative diabetic retinopathy with macular edema, unspecified eye; H18.513 Endothelial corneal dystrophy, bilateral; G25.81 Restless legs syndrome; M79.7 Fibromyalgia; F12.90 Cannabis use, unspecified, uncomplicated; Z79.01 Long term (current) use of anticoagulants; Z79.4 Long term (current) use of insulin; Z79.84 Long term (current) use of oral hypoglycemic drugs
CPT/HCPCS: 43239; 43450; 82948; 87081; J2704; J7120

== ENCOUNTER 2022-08-05 10:07 | Outpatient (CLI) | payer MEDICARE, SELFPAY ==
--- NOTE | ~2022-08-05 | NM_ITS ---
EXAM: NM gastric emptying study DATE: 08/05/2022 15:11 INDICATION: Nausea and regurgitation TECHNIQUE: A gastric emptying study was performed using the methodology of Lis RAUSCH, et al. J Nucl Med 2007; 48:568-572. The patient was given a meal consisting of 2 scrambled eggs labeled with 0.942 mCi Tc-99m sulfur colloid, 2 slices of toast, two packages of jam, and approximately 120 mL of water . Simultaneous anterior and posterior 1-min images of the abdomen were obtained with the patient supi ne at multiple time points over a total period of 4 hours. The geometric mean of anterior and posteri or views was determined, and the percentage retention was calculated for each time point. COMPARISON: None. FINDINGS: Gastric retention of the radiotracer-labeled meal was 58%, 28%, and 7% at the 1-hour, 2-hour, and 4-h our time points, respectively. With this technique, apparent rapid gastric emptying is suggested by < 30% gastric retention at 1 hour. Delayed gastric emptying is defined by gastric retention of >90% at 1 hour, >60% retention at 2 hours, or >10% retention at 4 hours. IMPRESSION: 1. Normal gastric emptying. Reviewed, dictated and finalized at location A. IMPRESSION: 1. Normal gastric emptying.
== END 2022-08-05 10:08 | disposition home or self-care (01) ==
PROVIDERS: PCP Family Medicine; Visit Provider Internal Medicine Gastroenterology
DX: R11.0 Nausea (principal); E66.9 Obesity, unspecified
CPT/HCPCS: 78264; A9541

== ENCOUNTER 2022-09-09 08:48 | Outpatient (CLI) | payer MEDICARE, SELFPAY ==
--- NOTE | ~2022-09-09 | MR_ITS ---
EXAMINATION: MR knee LT wo con DATE: 09/09/2022 09:25 INDICATION: Left knee pain TECHNIQUE: Magnetic resonance imaging (MRI) of the left knee was performed without intravenous contra st. Sequences included coronal PD-weighted FSE, coronal PD-weighted FS FSE, sagittal T2-weighted FSE , sagittal PD-weighted FS FSE and axial PD weighted fat saturated FSE. COMPARISON: Left knee radiographs dated 01/08/2020 FINDINGS: Medial compartment: Longitudinal horizontal tear of the posterior horn of the medial meniscus. Extensive partial thicknes s chondral ulceration along the weightbearing medial femoral condyle with associated chondral surface irregularity, underlying cortical irregularity and mild subarticular edema-like signal change. There is a 8 x 13 mm flat central subchondral osteophyte at the central portion of the posterior weightbea ring medial femoral condyle. Additional partial thickness cartilage loss along the medial tibial plat eau most prominent anteromedially where. Involves greater than 50% the cartilage thickness and with a dditional mild underlying subarticular edema-like signal change. Lateral compartment: Lateral meniscus is normal. Articular cartilage is normal. Patellofemoral compartment: Chondral ulceration and deep fissuring along the patellar apical ridge and cephalad aspect of the med ial patellar facet with mild underlying cortical irregularity and tiny foci of subarticular edema-lik e signal change. Additional focal chondral ulceration and deep fissuring with small central subchondr al osteophyte at the inferior aspect of the medial trochlea. Ligaments and tendons: Anterior and posterior cruciate ligaments are normal. The fibular collateral ligament complex is norm al. There is mild thickening of the proximal medial collateral ligament without surrounding edema con sistent with mild scarring related to chronic sprain. Michi tendon is normal. Mild tendinopathy witho ut tear of the distal quadriceps tendon. The visualized medial and lateral hamstring tendons as well as the iliotibial band are normal. Fluid: Small left knee joint effusion at the suprapatellar pouch. No loose osteochondral bodies identified. Osseous/other: Bone alignment is normal. No fracture. 9 x 7 x 6 mm T2 hyperintense lesion with lobular margins in th e medial femoral condyle along the metaphyseal side of the physis scar with typical location and appe arance of an enchondroma. IMPRESSION: 1. Longitudinal horizontal tear of the posterior horn of the medial meniscus. 2. Mild to moderate medial compartment and mild patellofemoral compartment osteoarthritis with region s of both moderate and high-grade chondromalacia in both compartments. 3. Likely mild scarring related to chronic sprain of the proximal medial collateral ligament. Reviewed, dictated and finalized at location A. IMPRESSION: 1. Longitudinal horizontal tear of the posterior horn of the medial meniscus. 2. Mild to moderate medial compartment and mild patellofemoral compartment oste oarthritis with regions of both moderate and high-grade chondromalacia in both compartments. 3. Likely mild scarring related to chronic sprain of the proximal medial collat eral ligament.
== END 2022-09-09 08:49 ==
LOC: MICIMG 08:50
PROVIDERS: PCP Family Medicine; Visit Provider Orthopaedic Surgery
DX: S83.242A Other tear of medial meniscus, current injury, left knee, initial encounter (principal); M17.12 Unilateral primary osteoarthritis, left knee; M22.42 Chondromalacia patellae, left knee; X58.XXXA Exposure to other specified factors, initial encounter
CPT/HCPCS: 73721

== ENCOUNTER 2024-03-01 01:25 | Day surgery (SDC) | payer MEDICARE, SELFPAY ==
[2024-02-23 14:03] VITALS: BMI 30.7
--- NOTE | 2024-02-23 15:12 | PC.NURSE ---
Spoke with PATIENT regarding medication XARELTO. Pt. verbalizes understanding that the last dose of XARELTO is to be taken on 02/26/2024 and the Endoscopist will instruct them when to restart after the procedure.
[2024-03-01 09:32] VITALS: BP 139/71; PULSE 79; RESP 18; TEMP 36.2; O2SAT 99
[2024-03-01 09:52] LABS: Glucose Point of Care 222 mg/dl (65-105)
[2024-03-01] MEDS: LACTATED RINGERS 1,000 ML 150 ML IV CONT (09:52)
--- NOTE | 2024-03-01 10:36 | PM.IMHP ---
H&P: HPI History of Present Illness Date/Time: 03/01/24 10:36 Chief Complaint: dyspepsia, abdominal discomfort PMFSH Past Medical History Medical History Acute bronchitis Acute non-recurrent maxillary sinusitis Acute pain of left knee MRI of the left knee on 09/09/2022 with tear of the medial meniscus with moderate osteoarthritis and chondromalacia. Acute pain of right wrist Aortic valve regurgitation (~12/07/17) trivial aortic valve regurgitation and mitral valve regurgitation on echocardiogram 12/07/2017 At moderate risk for fall (~2022) BMI 31.0-31.9,adult BMI 33.0-33.9,adult BMI 34.0-34.9,adult Cataract Cellulitis of great toe, left Chest pain at rest (~07/05/22) Atypical chest pain. Previous nuclear stress test 10/07/2017 with no ischemia with ejection fraction 73% with grade 1 diastolic dysfunction on echocardiogram with ejection fraction 68%. Chronic constipation Chronic depression Chronic pain of right hip Mild osteoarthritis of both hips on x-ray of the hips and pelvis on 09/07/2021. 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 HZV (herpes zoster virus) post herpetic neuralgia (07/06/20) Left lateral chest Mitral valve regurgitation (~12/07/17) trivial mitral valve regurgitation on echocardiogram 12/07/2017. Nail fungus Nausea Nonproliferative diabetic retinopathy with macular edema associated with type 2 diabetes mellitus (09/02/21) Dilated eye exam 05/14/2022 with non blurred refer to diabetic retinopathy with macular edema on the left with need for injection. Moderate nonproliferative diabetic retinopathy 03/23/2023. worsening retinopathy 06/15/2023. Obesity (BMI 30.0-34.9) Oral candidiasis Osteopenia determined by x-ray diffuse osteopenia of the lumbar spine on x-ray 09/07/2021. DEXA scan on 04/21/2022 reveals mild osteopenia with T-score 0.3 at the spine, -1.5 left hip, -1.4 right hip. Pulmonary embolism without acute cor pulmonale (11/15/17) Acute right lower lobe PE 11/15/2017 with venous Doppler studies of the lower extremities unremarkable. Restless legs syndrome UTI (urinary tract infection) Yeast vaginitis Family History Family History Mother Acute myocardial infarction Cerebrovascular accident Carcinoma of colon Family history of lung cancer Family history of malignant neoplasm of breast in first degree relative Grandparent Acute myocardial infarction Family history of malignant neoplasm of breast in first degree relative Sibling Cerebrovascular accident Father Family history of chronic obstructive pulmonary disease Social History Social History Smoking status: Never smoker Alcohol intake: current Substance use: current Substance use type: marijuana and prescription drug Other substance usage details: OCC. GUMMIES IN THE EVENING- PRESCRIPTION FROM DR. MELCHOR Lack of Transportation: No Lack of Food: Never True Current Housing: I Have Housing Concerned About Future Housing: No Difficulty Paying Gas/Electric Bills: No Difficulty Paying for Meds: No Currently Unemployed: No Education: High School Diploma/GED Difficulty w/ Childcare or Family Care: No Living arrangements: alone Gender identity (if verbalized by the patient): Female Spiritual care concerns: No Meds Home Medications and Allergies Home Medications Medication Instructions Recorded
--- NOTE | 2024-03-01 10:41 | WPDANESEPPF ---
Anes - Initial Pre Proc Eval Procedure: Operation Date: 03/01/24 10:30 Proposed Procedures p Esophagogastroduodenoscopy & Colonoscopy - Julio C Meyers MD Date/Time: 03/01/24 10:41 Surgeon: Julio C Meyers MD Pre Op Diagnosis: GERD, family hx cancer, hx colon polyps Patient Data Age: 68 Gender: F Height: 1.6 m Weight: 79.3 kg Last Vital Signs Temp 36.2 C L 03/01/24 09:32 Pulse 79 03/01/24 09:32 Resp 18 03/01/24 09:32 BP 139/71 03/01/24 09:32 Pulse Ox 99 03/01/24 09:32 O2 Del Method Room Air 03/01/24 09:32 Allergies Allergy/AdvReac Type Severity Reaction Status Date / Time apixaban Allergy Severe Hives Verified 03/01/24 09:24 clavulanic acid Allergy Severe Difficulty Verified 03/01/24 09:24 [From Augmentin] Breathing codeine Allergy Intermediate Rash Verified 03/01/24 09:24 Ozempic AdvReac Severe Abdominal Uncoded 03/01/24 09:24 Pain Home Medications Medication Instructions Recorded Confirmed Type insulin syringe-needle U-100 1 mL #100 ea 04/18/19 03/01/24 Rx 30 gauge x 5/16 (CareTouch Insulin Syringe) blood sugar diagnostic #100 ea 09/15/20 03/01/24 Rx pen needle, diabetic 32 gauge x #100 ea 10/17/20 03/01/24 Rx 5/16 (Comfort EZ Pen [place]) pen needle, diabetic 29 gauge x #100 ea 01/30/21 03/01/24 Rx 1/2 (Comfort EZ Pen [place]) insulin syringe-needle U-100 1 mL #100 ea 02/02/21 03/01/24 Rx 29 gauge x 1/2 (Advocate Syringes) insulin syringe-needle U-100 1 mL #100 ea 02/04/21 03/01/24 Rx 30 gauge x 1/2 (BD Eclipse Luer-Bernie) blood sugar diagnostic (OneTouch #100 ea 06/08/21 03/01/24 Rx Ultra Test strips) tizanidine 4 mg tablet 4 mg PO TID PRN muscle spasticity 10/15/21 03/01/24 Rx #120 tabs folic acid 1 mg tablet 1 mg PO DAILY #90 tabs 05/13/22 03/01/24 Rx Adults Multivitamin 1 tab-cap PO DAILY 06/09/22 03/01/24 History metformin 500 mg tablet,extended 1,000 mg PO BID #360 tabs 06/15/22 03/01/24 Rx release 24 hr amitriptyline 10 mg tablet 10 mg PO QHS 08/04/23 03/01/24 History insulin aspart U-100 100 unit/mL 14 unit subcut BID 08/04/23 03/01/24 History (3 mL) subcutaneous pen (Novolog FlexPen U-100 Insulin aspart) insulin detemir U-100 100 unit/mL 65 unit subcut . q.a.m. 08/04/23 03/01/24 History (3 mL) subcutaneous pen (Levemir FlexPen) magnesium oxide 500 mg capsule 500 mg PO BID 08/04/23 03/01/24 History ergocalciferol (vitamin D2) 1,250 50,000 unit PO WEEKLY #4 caps 08/19/23 03/01/24 Rx mcg (50,000 unit) capsule potassium chloride 10 mEq 10 meq PO DAILY #90 caps 09/19/23 03/01/24 Rx capsule,extended release cyanocobalamin (vitamin B-12) 1,000 mcg IM WEEKLY #25 mL 10/14/23 03/01/24 Rx 1,000 mcg/mL injection solution irbesartan 300 1 tablet PO DAILY #90 tabs 11/11/23 03/01/24 Rx mg-hydrochlorothiazide 12.5 mg tablet rivaroxaban 20 mg tablet (Xarelto) 20 mg PO DAILY #90 tabs 11/11/23 03/01/24 Rx pregabalin 150 mg capsule (Lyrica) 150 mg PO .COMPLEX #360 caps 01/10/24 03/01/24 Rx hydrocodone 10 mg-acetaminophen 1 tablet PO Q4H PRN pain #120 tabs 02/13/24 03/01/24 Rx 325 mg tablet lansoprazole 30 mg capsule,delayed 30 mg PO DAILY 02/23/24 03/01/24 History release ondansetron HCl 4 mg tablet 4 mg PO Q6H PRN Nausea And Vomiting 03/01/24 03/01/24 History Laboratory Tests 03/01/24 09:50 POC Capillary Glucose 222 H mg/dl (65-105) Patient hx anesthesia problems: none Family hx anesthesia problems: none Results Review: All pre-operative results and documents have been reviewed as part of the pre-operative evaluation. [facility] Past Medical History Medical History Acute bronchitis Acute non-recurrent maxillary sinusitis Acute pain of left knee MRI of the left knee on 09/09/2022 with tear of the medial meniscus with moderate osteoarthritis and chondromalacia. Acute pain of right wrist Aortic valve regurgitation (
--- NOTE | 2024-03-01 10:50 | PM.IMHP ---
H&P: HPI History of Present Illness Date/Time: 03/01/24 10:50 Chief Complaint: dyspgagia, acid reflux, family history of colon cancer, personal history of colon polyps Narrative: This patient has been experiencing dysphagia for several years, exclusively to solids. She has undergone an empiric dilation with the prior relief. She also complained of daily heartburn, despite taking omeprazole 20 mg q.d.. She states she had a partial colonic resection for advanced polyp 5 years ago. Her mother and brother had colon cancer. Review of Systems Review of Systems: All systems reviewed & are unremarkable except as noted in HPI and below PMFSH Past Medical History Medical History Acute bronchitis Acute non-recurrent maxillary sinusitis Acute pain of left knee MRI of the left knee on 09/09/2022 with tear of the medial meniscus with moderate osteoarthritis and chondromalacia. Acute pain of right wrist Aortic valve regurgitation (~12/07/17) trivial aortic valve regurgitation and mitral valve regurgitation on echocardiogram 12/07/2017 At moderate risk for fall (~2022) BMI 31.0-31.9,adult BMI 33.0-33.9,adult BMI 34.0-34.9,adult Cataract Cellulitis of great toe, left Chest pain at rest (~07/05/22) Atypical chest pain. Previous nuclear stress test 10/07/2017 with no ischemia with ejection fraction 73% with grade 1 diastolic dysfunction on echocardiogram with ejection fraction 68%. Chronic constipation Chronic depression Chronic pain of right hip Mild osteoarthritis of both hips on x-ray of the hips and pelvis on 09/07/2021. COVID-19 (05/17/21) fully vaccinated and tested positive for COVID on 05/22/2021 Diabetic peripheral neuropathy associated with type 2 diabetes mellitus Diarrhea (~04/18/22) Dyshidrotic eczema Encounter for blood typing blood type A positive on 09/11/2020 Encounter for osteoporosis screening in asymptomatic postmenopausal patient Fibrocystic breast Fibromyalgia Fuchs' corneal dystrophy of both eyes Headache History of pulmonary embolism bleacher kraft pulp suggested chronic anticoagulation. HZV (herpes zoster virus) post herpetic neuralgia (07/06/20) Left lateral chest Mitral valve regurgitation (~12/07/17) trivial mitral valve regurgitation on echocardiogram 12/07/2017. Nail fungus Nausea Nonproliferative diabetic retinopathy with macular edema associated with type 2 diabetes mellitus (09/02/21) Dilated eye exam 05/14/2022 with non blurred refer to diabetic retinopathy with macular edema on the left with need for injection. Moderate nonproliferative diabetic retinopathy 03/23/2023. worsening retinopathy 06/15/2023. Obesity (BMI 30.0-34.9) Oral candidiasis Osteopenia determined by x-ray diffuse osteopenia of the lumbar spine on x-ray 09/07/2021. DEXA scan on 04/21/2022 reveals mild osteopenia with T-score 0.3 at the spine, -1.5 left hip, -1.4 right hip. Pulmonary embolism without acute cor pulmonale (11/15/17) Acute right lower lobe PE 11/15/2017 with venous Doppler studies of the lower extremities unremarkable. Restless legs syndrome UTI (urinary tract infection) Yeast vaginitis Family History Family History Mother Acute myocardial infarction Cerebrovascular accident Carcinoma of colon Family history of lung cancer Family history of malignant neoplasm of breast in first degree relative Grandparent Acute myocardial infarction Family history of malignant neoplasm of breast in first degree relative Sibling Cerebrovascular accident Father Family history of chronic obstructive pulmonary disease Social History Social History Smoking status: Never smoker Alcohol intake: current Substance use: current Substance use type: marijuana and prescription drug Other substance usage details: OCC. GUMMIES IN THE EVENING- PRESCRIPTION FROM DR. MELCHOR
--- NOTE | 2024-03-01 11:20 | SUR.PREOP ---
1000: DR CERVANTES NOTIFIED PT DID COMPLETE HER BOWEL PREP YESTERDAY BUT VOMITED ALL DAY, PT TOOK HER PRESCRIBED ZOFRAN ONE TIME WITHOUT RELIEF, PT STATES HER STOOLS ARE LIQUID BUT CANNOT DESCRIBE THE COLOR, DR CERVANTES TO SEE PT, NO NEW ORDERS
[2024-03-01 11:30] VITALS: BP 137/73; PULSE 76; RESP 16; O2SAT 99
[2024-03-01 11:40] VITALS: BP 122/76; PULSE 71; RESP 16; O2SAT 99
[2024-03-01 11:50] VITALS: BP 131/81; PULSE 68; RESP 12; O2SAT 99
[2024-03-01 12:17] LABS: Glucose Point of Care 184 mg/dl (65-105)
== END 2024-03-01 12:22 | disposition home or self-care (01) ==
PROVIDERS: PCP Family Medicine; Referring Provider Nurse Practitioner Family; Visit Provider Internal Medicine Gastroenterology
PROC: 0DJ08ZZ Inspection of Upper Intestinal Tract, Via Natural or Artificial Opening Endoscopic (ICD-10-PCS; CPT 43235; principal; 2024-03-01 10:30)
DX: Z08 Encounter for follow-up examination after completed treatment for malignant neoplasm (principal); D12.5 Benign neoplasm of sigmoid colon; Z85.038 Personal history of other malignant neoplasm of large intestine; Z90.49 Acquired absence of other specified parts of digestive tract; Z98.0 Intestinal bypass and anastomosis status; Z87.19 Personal history of other diseases of the digestive system; K21.9 Gastro-esophageal reflux disease without esophagitis; K31.89 Other diseases of stomach and duodenum; K44.9 Diaphragmatic hernia without obstruction or gangrene; E11.42 Type 2 diabetes mellitus with diabetic polyneuropathy; E11.3399 Type 2 diabetes mellitus with moderate nonproliferative diabetic retinopathy without macular edema, unspecified eye; Z79.4 Long term (current) use of insulin; Z79.84 Long term (current) use of oral hypoglycemic drugs; Z79.01 Long term (current) use of anticoagulants; Z79.891 Long term (current) use of opiate analgesic; Z86.711 Personal history of pulmonary embolism; F12.90 Cannabis use, unspecified, uncomplicated; E66.9 Obesity, unspecified; Z68.31 Body mass index [BMI] 31.0-31.9, adult; Z80.0 Family history of malignant neoplasm of digestive organs
CPT/HCPCS: 45385; 43239; 82948; 88305; J2003; J2704; J7120

== ENCOUNTER 2024-09-29 13:40 | Emergency (ER) | payer MEDICARE, SELFPAY ==
--- NOTE | 2024-09-29 13:59 | ED_ITS ---
HPI - Skin/Abscess/Foreign Bdy General Chief complaint: Skin/Abscess/Foreign Body Stated complaint: Rash Time Seen by Provider: 09/29/24 13:59 Source: patient, RN notes reviewed and old records reviewed Mode of arrival: ambulatory Limitations: no limitations History of Present Illness HPI narrative: 69 year old female who presents to express care with complaints of developing a rash which is red raised along her chin up the up the right jaw which is itchy and tingling and also has small area above left eyebrow. Patient reports that she has been working in her yard in the past week and could of been bit by [employer]. Patient reports that she has been taking Benadryl for the itching. Patient reports no known exposure to any new medications, food. laundry products or any body soap or lotion. Patient denies any shortenss of breathing or any wheezing. MD complaint: rash Onset (ago): day(s) (2) Location: face Severity scale (1-10): 3 Quality: other (itchy tingling) Treatments prior to arrival: Benadryl Related Data Home Medications Medication Instructions Recorded Confirmed Last Taken Type Adults Multivitamin 1 tab-cap PO DAILY 06/09/22 04/02/24 02/29/24 History amitriptyline 10 mg tablet 10 mg PO QHS 08/04/23 04/02/24 02/29/24 History insulin aspart U-100 100 unit/mL 14 unit subcut BID 08/04/23 04/02/24 02/29/24 History (3 mL) subcutaneous pen (Novolog FlexPen U-100 Insulin aspart) insulin detemir U-100 100 unit/mL 65 unit subcut . q.a.m. 08/04/23 04/02/24 02/29/24 History (3 mL) subcutaneous pen (Levemir FlexPen) magnesium oxide 500 mg capsule 500 mg PO BID 08/04/23 04/02/24 02/29/24 History metoprolol tartrate 50 mg tablet 50 mg PO BID 03/30/24 04/02/24 Unknown History isosorbide mononitrate 30 mg 30 mg PO DAILY 08/21/24 Unknown History tablet,extended release 24 hr Allergies Allergy/AdvReac Type Severity Reaction Status Date / Time apixaban Allergy Severe Hives Verified 09/29/24 14:00 clavulanic acid (From Allergy Severe Difficulty Verified 09/29/24 14:00 Augmentin) Breathing codeine Allergy Intermediate Rash Verified 09/29/24 14:00 Ozempic AdvReac Severe Abdominal Uncoded 09/29/24 14:00 Pain Review of Systems Review of Systems: CONSTITUTIONAL: Denies fever, chills, or sweats. CARDIOVASCULAR: Denies chest pain, palpitations, or edema. RESPIRATORY: Denies cough or dyspnea. SKIN: Reports red raised rash along right chin and jaw area, some on left forehead facial area, no pustular formation or any drainage noted. MUSCULOSKELETAL: Denies joint pain or myalgia. NEUROLOGIC: Denies headache, numbness, or weakness. 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 Moderate nonproliferative diabetic retinopathy 03/23/2023. worsening retinopathy 06/15/2023. Proliferative diabetic retinopathy of both eyes associated with type 2 diabetes mellitus proliferative diabetic retinopathy 09/24/2024. Atherosclerotic heart disease of [place] coronary artery without angina pectoris cardiac catheterization April, with 30-40% lesion of the LAD and 30- 40% lesion of the distal RCA. Encounter for osteoporosis screening in asymptomatic postmenopausal patient Diabetic peripheral neuropathy associated with type 2 diabetes mellitus Chronic constipation History of pulmonary embolism ppap coordinator suggested chronic anticoagulation. Chronic depression Yeast vaginitis Aortic valve regurgitation (~12/07/17) trivial aortic valve regurgitation and mitral valve regurgitation on echocardiogram 12/07/2017 Mitral valve regurgitation (~12/07/17) trivial mitral valve regurgitation on echocardiogram 12/07/2017. Chest pain at rest (~07/05/22) Atypical chest pain. Previous nuclear stress test 10/07/2017 with no ischemia with ejection fraction 73% with grade 1 diastolic dysfunction on echocardiogram with ejection fraction 68%. At moderate risk for fall (~2022) Nail fungus Dyshidrotic eczema Diarrhea (~04/18/22) BMI 31.0-31.9,adult Obesity (BMI 30.0-34.9) Osteopenia determined by x-ray diffuse osteopenia of the lumbar spine on x-ray 09/07/2021. DEXA scan on 04/21/2022 reveals mild osteopenia with T-score 0.3 at the spine, -1.5 left hip, -1.4 right hip. Chronic pain of right hip Mild osteoarthritis of both hips on x-ray of the hips and pelvis on 09/07/2021. COVID-19 (05/17/21) fully vaccinated and tested positive for COVID on 05/22/2021 Nausea Oral candidiasis BMI 34.0-34.9,adult Acute bronchitis Fibrocystic breast Fuchs' corneal dystrophy of both eyes BMI 33.0-33.9,adult HZV (herpes zoster virus) post herpetic neuralgia (07/06/20) Left lateral chest Encounter for blood typing blood type A positive on 09/11/2020 UTI (urinary tract infection) Acute non-recurrent maxillary sinusitis Headache Restless legs syndrome Acute pain of right wrist Acute pain of left knee MRI of the left knee on 09/09/2022 with tear of the medial meniscus with moderate osteoarthritis and chondromalacia. Cellulitis of great toe, left Cataract Fibromyalgia Pulmonary embolism without acute cor pulmonale (11/15/17) Acute right lower lobe PE 11/15/2017 with venous Doppler studies of the lower extremities unremarkable. Family History Family History Mother Acute myocardial infarction Cerebrovascular accident Carcinoma of colon Family history of lung cancer Family history of malignant neoplasm of breast in first degree relative Grandparent Acute myocardial infarction Family history of malignant neoplasm of breast in first degree relative Sibling Cerebrovascular accident Father Family history of chronic obstructive pulmonary disease Social History Social History Smoking status: Never smoker Alcohol intake: current Substance use: current Substance use type: marijuana and prescription drug Other substance usage details: OCC. GUMMIES IN THE EVENING- PRESCRIPTION FROM DR. MELCHOR Lack of Transportation: No Lack of Food: Never True Current Housing: I Have Housing Concerned About Future Housing: No Difficulty Paying Gas/Electric Bills: No Difficulty Paying for Meds: No Currently Unemployed: No Education: High School Diploma/GED Difficulty w/ Childcare or Family Care: No Living arrangements: alone Gender identity (if verbalized by the patient): Female Spiritual care concerns: No Comments At time of signature, agree with nursing past medical, surgical, social and family history. There is no relevant family history pertinent to the presenting complaint Exam Narrative: GENERAL: Well-appearing, well-nourished, and in no acute distress. HEAD: Normocephalic, atraumatic. EYES: PERRLA, conjunctivae clear, and EOMI. ENT: Mucous membranes moist. Oropharynx without edema, erythema or lesions. NECK: Supple. No lymphadenopathy CHEST: Clear to auscultation. No respiratory distress.SAO2 98% on room air HEART: Regular rate and rhythm. SKIN: Warm, dry. red raised lesions along lower chin right jaw area and along left forehead NEURO: Alert and oriented x3. PSYCH: Normal mood and affect Course Course Emergency Course: Patient is aware of diagnosis, understands and agrees to treatment plan. Anticipatory guidance given. Patient agrees to follow-up as directed and is aware of reasons to seek care at the emergency department. Portions of this record may have been created with voice recognition software Level of Care: Express Care Visit Vital Signs Vital signs: Vital Signs Temperature 36.1 C L 09/29/24 14:01 Pulse Rate 66 09/29/24 14:01 Respiratory Rate 16 09/29/24 14:01 Blood Pressure 149/95 H 09/29/24 14:01 Pulse Oximetry 98 09/29/24 14:01 Oxygen Delivery Room Air 09/29/24 14:01 Temperature 36.1 C L 09/29/24 14:01 Pulse Rate 66 09/29/24 14:01 Respiratory Rate 16 09/29/24 14:01 Blood Pressure 149/95 H 09/29/24 14:01 Pulse Oximetry 98 09/29/24 14:01 Oxygen Delivery Room Air 09/29/24 14:01 Reviewed MDM - Skin/Abscess/Foreign Bdy MDM Narrative Medical decision making narrative: Does not appear at this time to be erythema multiforme, bullous, SJS, TEN; no evidence at this time to suggest RMSF, endocarditis or Lyme disease; patient looks well, nontoxic and is tolerating oral intake; no neurologic signs or symptoms; no headache, photophobia or neck pain; afebrile; appropriate for initial outpatient treatment; discussed the importance of follow-up, patient agrees; question, viral exanthema, contact dermatitis, allergic dermatitis, eczema, urticaria.. No soft palate or uvula edema, no tongue, lip edema or other mucosal involvement, no respiratory compromise, no stridor, no wheezing, no wheezing, no history of syncope, no hypotension, no nausea, vomiting, or diarrhea. Instructed patient to go to nearest ER immediately for any worsening symptoms including but not limited to: fever, spreading rash, pain, sore throat, headache, dizziness, chest pain, trouble breathing, or any symptoms concerning to the patient. Differential Diagnosis Differential diagnosis: Likely abscess of skin or subcutaneous tissue, cellulitis, eczema, insect bites and contact dermatitis Medical Records Attestation: I reviewed the patient's medical records. Critical Care Time Critical Care Time Critical Care Time: No Discharge Plan Discharge Clinical Impression: Contact dermatitis and other eczema, due to unspecified cause Contact dermatitis Qualifiers: Contact dermatitis type: unspecified Contact dermatitis trigger: unspecified trigger Qualified Code(s): L25.9 - Unspecified contact dermatitis, unspecified cause Patient Disposition: Home Condition: Stable Instructions: Contact Dermatitis (ED) Additional Instructions: Cleanse rash on face with liquid Dial soap, Apply hydrocortisone to the rash on your face at least twice daily watch for any infection--redness, swelling, drainage Tylenol or Ibuprofen follow up with PCP in 7-10 days for a wound check recheck if develop fever, chills, increasing symptom Go to the ER if your symptoms become worse of if ANY new symptoms develop take Zyrtec daily for 10 days Pepcid 20 mg one tab daily for 10 days Prednisone taper take as ordered,make sure to watch glucose levels closely and maintain diet If your symptoms persist, change or worsen significantly before you can contact your personal physician then please, without delay, go to the emergency department for further evaluation. Follow-up with PCP in 7-10 days or sooner if needed Follow up with PCP soon in regards to your blood pressure which is elevated above threshold for referral. Blood pressure above 120/80 may indicate pre- hypertension. 149/95 Patient Language: Nepali Prescriptions: New prednisone 10 mg tablet 10 mg PO DIRECTED Qty: 21 0RF Rx Instructions: see taper instructions 6 tabs day 1, 5 tabs day 2, 4 tabs day 3, 3 tabs day 4,2 tabs day 5, 1 tab day 6 No Action (DME) blood sugar diagnostic Strip See Rx Instructions .Route Qty: 100 11RF Rx Instructions: 3 times daily amitriptyline 10 mg tablet 10 mg PO QHS Patient Comments: has not taken magnesium oxide 500 mg capsule 500 mg PO BID Levemir FlexPen 100 unit/mL (3 mL) insulin pen 65 unit subcut . q.a.m. Patient Comments: prescribed by Endocrinology insulin aspart U-100 [Novolog FlexPen U-100 Insulin] 100 unit/mL (3 mL) insulin pen 14 unit subcut BID Patient Comments: prescribed by catering assistant with 14 units twice daily with meals plus sliding scale ondansetron HCl 4 mg tablet 4 mg PO Q8H Qty: 30 3RF pantoprazole 40 mg tablet,delayed release (DR/EC) 40 mg PO Q12HR Qty: 180 2RF Rx Instructions: 90 day fill if approved by insurance Adults Multivitamin 1 tab-cap PO DAILY (DME) insulin syringe-needle U-100 [CareTouch Insulin Syringe] 1 mL 30 gauge x 5/16 syringe See Rx Instructions .ROUTE .MEDSUPPLY Qty: 100 3RF Rx Instructions: As directed (DME) Comfort EZ Pen [place] 32 gauge x 5/16 needle See Rx Instructions .Route Qty: 100 5RF Rx Instructions: As directed (DME) pen needle, diabetic [Comfort EZ Pen [place]] 29 gauge x 1/2 needle See Rx Instructions .ROUTE .MEDSUPPLY Qty: 100 3RF Rx Instructions: As directed (DME) insulin syringe-needle U-100 [Advocate Syringes] 1 mL 29 gauge x 1/2 syringe See Rx Instructions .Route Qty: 100 11RF Rx Instructions: As directed (DME) insulin syringe-needle U-100 [BD Eclipse Luer-Bernie] 1 mL 30 gauge x 1/2 syringe See Rx Instructions .ROUTE .MEDSUPPLY Qty: 100 11RF Rx Instructions: use 4 times daily with insulin (DME) OneTouch Ultra Test Strip See Rx Instructions .Route Qty: 100 11RF Rx Instructions: to test blood sugar 3x daily folic acid 1 mg tablet 1 mg PO DAILY Qty: 90 3RF metformin 500 mg tablet extended release 24 hr 1,000 mg PO BID Qty: 360 3RF potassium chloride 10 mEq capsule, extended release 10 meq PO DAILY Qty: 90 3RF irbesartan-hydrochlorothiazide 300-12.5 mg tablet 1 tablet PO DAILY Qty: 90 3RF metoprolol tartrate 50 mg tablet 50 mg PO BID Patient Comments: prescribed by mold cleaning and storage supervisor ergocalciferol (vitamin D2) 1,250 mcg (50,000 unit) capsule 50,000 unit PO WEEKLY Qty: 4 11RF fluconazole 150 mg tablet See Rx Instructions PO ONCE Qty: 2 0RF Rx Instructions: Take 1 dose now and then repeat in 1 week PO once; as a single dose nystatin 100,000 unit/mL suspension 5 ml PO QID Qty: 480 0RF Rx Instructions: swish and swallow q.i.d. for 14 days isosorbide mononitrate 30 mg tablet extended release 24 hr 30 mg PO DAILY Patient Comments: started by mold cleaning and storage supervisor April,. tizanidine 4 mg tablet 4 mg PO TID PRN (Reason: muscle spasticity) Qty: 120 3RF rosuvastatin [Crestor] 10 mg tablet 10 mg PO DAILY Qty: 90 3RF pregabalin [Lyrica] 150 mg capsule 150 mg PO .COMPLEX Qty: 360 1RF Rx Instructions: 150 mg PO take 1 capsule in the morning, 1 capsule at noon, and 2 capsules at bedtime; Xarelto 20 mg tablet 20 mg PO DAILY Qty: 90 3RF cyanocobalamin (vitamin B-12) 1,000 mcg/mL solution 1,000 mcg IM WEEKLY Qty: 25 1RF hydrocodone-acetaminophen 10-325 mg tablet 1 tablet PO Q4H PRN (Reason: pain) 30 Days Qty: 120 0RF Follow-up/Referrals: Karlo Melchor MD [Primary Care Provider] - Time of Disposition: 14:15 Quality Sherri Coma Scale Eyes: Open Verbal: Oriented and Alert Motor: Follows Commands Sherri Coma Total Score: 15
[2024-09-29 14:01] VITALS: BP 149/95; PULSE 66; RESP 16; TEMP 36.1; O2SAT 98
== END 2024-09-29 14:34 | disposition home or self-care (01) ==
PROVIDERS: Emergency Provider Registered Nurse; PCP Family Medicine
DX: L25.9 Unspecified contact dermatitis, unspecified cause (principal); F12.90 Cannabis use, unspecified, uncomplicated; I25.10 Atherosclerotic heart disease of native coronary artery without angina pectoris; E11.42 Type 2 diabetes mellitus with diabetic polyneuropathy; I08.0 Rheumatic disorders of both mitral and aortic valves; E66.9 Obesity, unspecified; Z68.30 Body mass index [BMI] 30.0-30.9, adult; G25.81 Restless legs syndrome; M79.7 Fibromyalgia; E11.3593 Type 2 diabetes mellitus with proliferative diabetic retinopathy without macular edema, bilateral; Z79.4 Long term (current) use of insulin; Z86.711 Personal history of pulmonary embolism; Z86.16 Personal history of COVID-19
CPT/HCPCS: 99213; G0463